=== PATIENT | female | born 1970 | race African-American/Black ===

== ENCOUNTER 2018-05-16 10:18 | Emergency (ER) | payer MEDICAID, OTHER ==
[~2018-05-16] VITALS: Ht 129.5 cm; Wt 45.0 kg
[2018-05-16 10:23] VITALS: BP 159/90
== END 2018-05-16 11:21 | disposition home or self-care (01) ==
LOC: ER 10:18
DX: H11.31 Conjunctival hemorrhage, right eye (principal); G40.909 Epilepsy, unspecified, not intractable, without status epilepticus; F79 Unspecified intellectual disabilities
CPT/HCPCS: 99281

== ENCOUNTER 2018-10-01 11:47 | Emergency (ER) | payer MEDICARE, MEDICAID ==
[~2018-10-01] VITALS: Ht 149.9 cm; Wt 46.0 kg
[2018-10-01 11:53] VITALS: BP 112/73
== END 2018-10-01 13:20 | disposition home or self-care (01) ==
LOC: ER 13:11
DX: H57.89 Other specified disorders of eye and adnexa (principal); R56.9 Unspecified convulsions; F79 Unspecified intellectual disabilities
CPT/HCPCS: 99281

== ENCOUNTER 2018-12-05 11:21 | Emergency (ER) | payer MEDICARE, MEDICAID ==
[~2018-12-05] VITALS: Ht 149.9 cm; Wt 45.0 kg
[2018-12-05 11:25] VITALS: BP 174/90
== END 2018-12-05 15:28 | disposition left against medical advice (07) ==
LOC: ER 13:47
DX: Z53.21 Procedure and treatment not carried out due to patient leaving prior to being seen by health care provider (principal)

== ENCOUNTER 2019-10-07 22:08 | Emergency (ER) | payer MEDICARE, MEDICAID ==
[~2019-10-07] VITALS: Ht 152.4 cm; Wt 50.0 kg
[2019-10-07] MEDS: LORAZEPAM 2MG/ML CPJ IM PRN (22:57)
[2019-10-07] MEDS ORDERED: HALOPERIDOL LACTATE 5MG/ML VIAL IM ONE (23:30)
[2019-10-08] MEDS ORDERED: ZIPRASIDONE MESYLATE 20MG/VIAL IM ONE (00:45)
[2019-10-08 01:10] LABS: BASOPHILS % 1.2 % (0.0-2.0); EOSINOPHILS % 0.6 % (0.0-5.0); HEMATOCRIT. 41.6 % (36.0-48.0); HEMOGLOBIN. 13.8 g/dL (12.0-16.0); LYMPHOCYTES % 22.7 % (20.0-50.0); MEAN CORPUSCULAR HEMOGLOBIN 27.8 pg (28.0-32.0); MEAN CORPUSCULAR VOLUME 84.1 fL (81.0-99.0); MEAN PLATELET VOLUME 7.6 fl (7.4-10.4); MONOCYTES % 5.9 % (2.0-8.0); NEUTROPHILS % 69.6 % (40.0-76.0); PLATELET 260 x1000/uL (130-400); RED BLOOD CELL COUNT 4.95 mill/uL (4.2-5.4); RED CELL DISTRIBUTION WIDTH 14.4 % (11.6-14.6)
[2019-10-08 01:16] LABS: CHLORIDE 105 mEq/L (98-107)
[2019-10-08 01:19] LABS: ETHANOL BLOOD < 10 mg/dL
[2019-10-08] MEDS: LORAZEPAM 2MG/ML CPJ IM PRN (01:30)
[2019-10-08] MEDS ORDERED: SODIUM CHLORIDE 0.9% 1,000 ML IV ONE (01:45)
[2019-10-08] MEDS ORDERED: ZIPRASIDONE MESYLATE 20MG/VIAL IM SCH (01:45)
[2019-10-08 05:31] VITALS: BP 122/75
== END 2019-10-08 05:56 | disposition home or self-care (01) ==
LOC: ER 22:08
DX: R55 Syncope and collapse (principal); R41.82 Altered mental status, unspecified; E87.2 Acidosis
CPT/HCPCS: 36415; 70450; 71045; 80053; 80320; 81025; 83605; 84484; 85025; 96360; 96361; 96372; 99284; J1630; J2060; J3486; G0480